=== PATIENT | female | born 1970 | race Caucasian/White ===

== ENCOUNTER 2018-10-13 02:52 | Emergency (ER) | payer OTHER ==
[~2018-10-13] VITALS: Ht 162.6 cm; Wt 90.0 kg
[2018-10-13 02:58] VITALS: BP 135/96
[2018-10-13] MEDS ORDERED: ACET-3067 PO (03:18)
[2018-10-13] MEDS ORDERED: IBUP-1984 PO (03:18)
[2018-10-13] MEDS ORDERED: CYCL-1 PO (03:18)
[2018-10-13] MEDS ORDERED: ketorolac trometh inj. 60 MG/2 ML VIAL IM ONE (03:20)
== END 2018-10-13 03:30 | disposition home or self-care (01) ==
LOC: ER 02:55
DX: M54.42 Lumbago with sciatica, left side (principal); M62.830 Muscle spasm of back; F17.200 Nicotine dependence, unspecified, uncomplicated; Z79.899 Other long term (current) drug therapy
CPT/HCPCS: 96372; 99283; J1885

== ENCOUNTER 2018-12-04 23:55 | Emergency (ER) | payer MEDICAID ==
[~2018-12-04] VITALS: Ht 162.6 cm; Wt 77.8 kg
[~2018-12-04 23:55] MED LIST: CYCL-1 PO
[2018-12-04 23:58] VITALS: BP 126/84
== END 2018-12-05 00:58 | disposition home or self-care (01) ==
LOC: ER 23:57
DX: J02.9 Acute pharyngitis, unspecified (principal); Z88.8 Allergy status to other drugs, medicaments and biological substances
CPT/HCPCS: 99281